=== PATIENT | male | born 1995 | race Caucasian/White ===

== ENCOUNTER 2023-01-17 01:53 | Emergency (ER) | payer SELFPAY ==
[2023-01-17 01:55] VITALS: BP 120/76; PULSE 91; RESP 16; TEMP 36.6; O2SAT 99; BMI 23.2
--- NOTE | 2023-01-17 02:08 | EX.ED.UPPERE ---
HPI History of Present Illness Chief Complaint: Trauma Informant: patient and EMS Narrative Narrative: 27-year-old healthy male presents at 2 AM by EMS for an injury to his left hand, he states he was drinking alcohol and splitting firewood with an ax accidentally hit his left hand, he called EMS because there was blood squirting everywhere. PFSH PFS Medical History no medical history Allergy/AdvReac Type Severity Reaction Status Date / Time No Known Allergies Allergy Verified 01/17/23 02:01 Social History Smoking Status: Current every day smoker tobacco type: cigarettes ROS ROS ED Constitutional Constitutional ED: Denies chills or fever(s) Musculoskeletal Musculoskeletal: Reports extremity pain; Denies neck pain Integumentary Reports laceration; Denies Abrasions or rash Neurologic Neurologic: Denies paresthesias or weakness EXAM Physical Exam Const Vital Signs: 01/17/23 01:55 Temperature 97.8 F Temperature Source Temporal Pulse Rate 91 Respiratory Rate 16 Blood Pressure 120/76 Blood Pressure Mean 90 Pulse Ox 99 Positive well nourished and well developed General Appearance ED: well developed and NAD Neck full ROM and supple Back/Spine normal ROM and normal to inspection Extremity full ROM Extremity Narrative: Tender dorsal left second metacarpal without deformity, there is no overlying laceration without active bleeding. No other bony tenderness in the hand or wrist. Excellent range of motion throughout. Neuro oriented x3, no focal motor deficits and no sensory deficits noted Sensorium / Orientation: alert Psych mental status grossly normal and thought process normal Skin Skin Narrative: 1 centimeter laceration to the dorsum of the left hand no active bleeding, clean appearing, linear, subcutaneous/full-thickness. Rashes: no rashes MDM MDM MDM Narrative Medical decision making narrative: Patient's last tetanus shot was unknown, but he declines getting a tetanus injection/vaccination/update. X-ray 3 views of the left hand my interpretation negative for fracture. Laceration was repaired see the procedure note. Discharged in stable condition. Procedures Lacerations L hand: Length: 1 cm Depth: Sub Q Shape: Linear Prep: Sterile Conditions and Chlorhexadine (scrubbed) Laceration repair: Local (topical LET) Number of Sutures/Sean: 1 Suture Information: Ethilon, Horizontal, Mattress and 5-0 Discharge Plan Triage Chief Complaint: Trauma ED Provider: Ty Marquez Dx/Rx/DC Orders Clinical Impression: Contusion of hand, left, Laceration of hand, left Instructions: ED Laceration, Hand: All Closures Primary Care Provider: Care Physician,No Primary Referrals: NOT,DEFINED [Non-Staff] - 10 Day for suture removal Disposition Disposition: Home, Self Care
--- NOTE | 2023-01-17 02:10 | RAD_ITS ---
STUDY: X-RAY - LEFT HAND REASON FOR EXAM: Male, 27 years old. INJURY TECHNIQUE: 3 view(s) of the hand. COMPARISON: None. FINDINGS: Normal radiocarpal articulation. Normal distal radioulnar joint. Normal visualized carpal bones. Normal carpal articulations Normal carpometacarpal articulation of the thumb. Normal second through fifth carpometacarpal joints. Normal metacarpi. Normal metacarpophalangeal joint of the thumb. Normal interphalangeal joint of the thumb. Normal proximal and distal phalanges of the thumb. Normal metacarpophalangeal joints of the second through fifth fingers. Normal proximal and distal interphalangeal joints of the second through fifth fingers. Normal phalanges of the second through fifth fingers. The soft tissue structures are unremarkable. RAD/Hand Min 3 Views IMPRESSION: Normal x-ray examination of the hand. Electronically Signed: Leora Dominguez MD at 2:26 EDT ,
[2023-01-17] MEDS: Lidocaine/Epi/Tetracaine 50 ML 1 APPLIC TOPICAL (02:18)
[2023-01-17 02:50] VITALS: PULSE 88; RESP 18; O2SAT 99
== END 2023-01-17 02:51 | disposition home or self-care (01) ==
PROVIDERS: Emergency Provider Emergency Medicine; Visit Provider Emergency Medicine
DX: S60.222A Contusion of left hand, initial encounter (principal); S61.412A Laceration without foreign body of left hand, initial encounter; F17.210 Nicotine dependence, cigarettes, uncomplicated; Z28.21 Immunization not carried out because of patient refusal; X58.XXXA Exposure to other specified factors, initial encounter
CPT/HCPCS: 12001; 73130; 99285